=== PATIENT | male | born 1995 | race Two or more races ===

== ENCOUNTER 2018-06-11 06:04 | Observation (INO) | payer OTHER ==
[2018-06-11] VITALS (15 sets, daily range): BP systolic 125–154; BP diastolic 53–89
[~2018-06-11] VITALS: Ht 179.1 cm; Wt 88.5 kg
[~2018-06-11 06:04] MED LIST: CLINDESSE5.8 GM VG; FISH OIL 1,0001 EAC5 ORAL; IBUPROFEN600 MG ORAL; NIACIN500 M3 PO
[2018-06-11] MEDS ORDERED: Zemuron 50mg/5ml Inj IV ONE (06:39)
[2018-06-11] MEDS ORDERED: LR 1000ml 1,000 ML IVLG SCH (06:53)
--- NOTE | 2018-06-11 06:55 | Anethesia Preoperative Eval ---
Anesthesia Pre-op PMH/ROS General Date of Evaluation: Jun 11, 2018 Time of Evaluation: 07:11 Anesthesiologist: Elpidio ASA Score: ASA 2 Mallampati Score Class I : Soft palate, uvula, fauces, pillars visible Class II: Soft palate, uvula, fauces visible Class III: Soft palate, base of uvula visible Class IV: Only hard plate visible Mallampati Classification: Class II Surgeon: Danny Diagnosis: Back Pain Surgical Procedure: Left L 4-5 Microdiscetomy, Decompression Anesthesia History: none Family History: no anesthesia problems Allergies: Coded Allergies: No Known Allergies (Unverified , 06/10/18) Medications: see eMAR Patient NPO?: Yes NPO Date: Jun 10, 2018 NPO Time: 2100 Past Medical History Cardiovascular: Reports: HTN, other - HL Other: other - Overweight Anesthesia Pre-op Phys. Exam Physician Exam Last Vital Signs Date Time Temp Pulse Resp B/P (MAP) Pulse Ox O2 Delivery O2 Flow Rate FiO2 06/11/18 06:45 97.3 73 18 154/74 (100) 99 Constitutional: NAD Neurologic: CN 2-12 intact Cardiovascular: RRR Respiratory: CTA Gastrointestinal: S/NT/ND Airway Exam Mallampati Score: Class II MO: full ROM: full Teeth: intact Anesthesia Pre-op A/P Risk Assessment & Plan Assessment: ASA 2 Plan: GA, SED, GlideScope Go Status Change Before Surgery: No Pre-Antibiotics Dru Gram s Ancef IV Given Within 1 Hr of Incision: Yes Time Given: 07:26 Shawn Magallanes MD Jun 11, 2018 06:55
[2018-06-11] MEDS ORDERED: DiphenhydrAMINE 50mg/ml Inj IVP PRN (07:00)
[2018-06-11] MEDS ORDERED: Metoclopramide 10mg/2ml Inj IVP PRN (07:00)
[2018-06-11] MEDS ORDERED: Midazolam 2mg/2ml Inj IVP PRN (07:00)
[2018-06-11] MEDS ORDERED: oxyCODONE HCL/Acetaminophen 5/325mg ORAL PRN (07:00)
[2018-06-11] MEDS ORDERED: Propofol 1,000mg/ 100ml btl IV ONE (07:00)
[2018-06-11] MEDS ORDERED: Ketorolac 30mg Inj IV PRN ×2 (07:00)
[2018-06-11] MEDS ORDERED: Lidocaine 1% MPF 10mg/ml 5ml ONE ×2 (07:00→09:06)
[2018-06-11] MEDS ORDERED: NS Irrig 1000ml ONE (07:00)
[2018-06-11] MEDS ORDERED: Lidocaine 1% Plain 30 ml INJ ONE (07:00)
[2018-06-11] MEDS ORDERED: fentaNYL 100 mcg/2 mL IV PRN (07:00)
[2018-06-11] MEDS ORDERED: LORazepam Inj 2mg/ml 1ml IV PRN (07:00)
[2018-06-11] MEDS ORDERED: Norco 5mg/325mg tab ORAL PRN ×2 (07:00→10:30)
[2018-06-11] MEDS ORDERED: Sodium Chloride 10ml vial INJ ONE (07:00)
[2018-06-11] MEDS ORDERED: Dexamethasone 4mg/ml vial ONE (07:00)
[2018-06-11] MEDS ORDERED: Acetaminophen (Non formulary) 100 ML IV ONE (07:00)
[2018-06-11] MEDS ORDERED: Sterile Water Irrig 1000ml IRRIG ONE (07:00)
[2018-06-11] MEDS ORDERED: Hydromorphone 0.5mg/0.5ml inj IVP PRN (07:00)
[2018-06-11] MEDS ORDERED: Meperidine 50mg/ml Inj(FOR RIGORS ONLY) IVP PRN (07:00)
[2018-06-11] MEDS ORDERED: HYDROcodone/Acetamin 7.5/325 tab ORAL PRN (07:00)
[2018-06-11] MEDS ORDERED: Atropine Sulfate 0.4mg/ml inj IVP PRN (07:00)
[2018-06-11] MEDS ORDERED: LR 1000ml ONE (07:00)
[2018-06-11] MEDS ORDERED: CLINDESSE5.8 GM VG (07:05)
--- NOTE | 2018-06-11 07:08 | Pre-Procedure Note/Attestation ---
Pre-Procedure Note/Attestation Complete Prior to Procedure Planned Procedure: left Procedure Narrative: Left L4-5, L5-S1 Decompression / Discectomy Indications for Procedure Pre-Operative Diagnosis: L4-5-S1 Disc hernia Attestation I attest that I discussed the nature of the procedure; its benefits; risks and complications; and alternatives (and the risks and benefits of such alternatives ), prior to the procedure, with the patient (or the patient's legal freight representative). I attest that, if there was a reasonable possibility of needing a blood transfusion, the patient (or the patient's legal freight representative) was given the [facility] standardized written summary, pursuant to the Marques Petros Blood Safety Act ([place] Health and Safety Code # 1645, as amended). I attest that I re-evaluated the patient just prior to the surgery and that there has been no change in the patient's H&P, except as documented below: THIAGO FARRIS Jun 11, 2018 07:08
[2018-06-11] MEDS ORDERED: Neosporin Oint Ud Pkt TOPIC ONE (07:13)
[2018-06-11] MEDS ORDERED: Thrombin 5000 units TOPIC ONE (07:13)
[2018-06-11] MEDS ORDERED: Bupivacaine 0.5% Inj 30 ml vial INJ ONE ×2 (07:13→09:42)
[2018-06-11] MEDS ORDERED: Bupivacaine w/Epi 0.5% 30ml Vial INJ ONE (07:13)
[2018-06-11] MEDS ORDERED: Bacitracin 50000 Units Vial ONE (07:14)
[2018-06-11] MEDS ORDERED: fentaNYL 100 mcg/2 mL IV ONE ×2 (08:02→09:42)
--- NOTE | 2018-06-11 08:10 | Immediate Post-Op Evaluation ---
Immediate Post-Op Evalulation Immediate Post-Op Evalulation Procedure: Left L 4-5 Microdiscetomy, Decompression Date of Evaluation: Jun 11, 2018 Time of Evaluation: 10:45 IV Fluids: 800 LR Blood Products: 0 Estimated Blood Loss: 50 Urinary Output: 300 Blood Pressure Systolic: 149 Blood Pressure Diastolic: 83 Pulse Rate: 82 Respiratory Rate: 16 O2 Sat by Pulse Oximetry: 100 Temperature (Fahrenheit): 97.5 Pain Score (1-10): 2 Nausea: No Vomiting: No Complications 0 Patient Status: awake, reacts, patent, none Hydration Status: adequate Dru Grams Ancef IV Given Within 1 Hr of Incision: Yes Time Given: 07:26 Shawn Magallanes MD Jun 11, 2018 08:10
--- NOTE | 2018-06-11 08:11 | 48 Hour Post Anesthesia Eval ---
Post Anesthesia Evaluation Procedure: Left L 4-5 Microdiscetomy, Decompression Date of Evaluation: Jun 11, 2018 Time of Evaluation: 12:53 Blood Pressure Systolic: 134 0: 81 Pulse Rate: 78 Respiratory Rate: 18 Temperature (Fahrenheit): 98.2 O2 Sat by Pulse Oximetry: 100 Airway: patent Nausea: No Vomiting: No Pain Intensity: 2 Hydration Status: adequate Cardiopulmonary Status: Stable Mental Status/LOC: patient returned to baseline Follow-up Care/Observations: 0 Post-Anesthesia Complications: 0 Follow-up care needed: ready to discharge Shawn Magallanes MD Jun 11, 2018 08:11
--- NOTE | 2018-06-11 10:23 | Brief Operative Note ---
Immediate Post Operative Note Operative Note Chief Complaint: Low back pain and Left leg pain Pre-op Diagnosis: L4-5-S1 Disc hernia Procedure: Left L4-5, L5-S1 decompression/ discectomy Post-op Diagnosis: same Post-op Diagnosis: same as pre-op Findings: consistent w/pre-op dx studies Surgeon: Danny Senior Research Analyst: Grace Anesthesiologist: Elpidio Anesthesia: general Specimen: yes - Disc Complications: none Condition: stable Fluids: See Anesthesia Recs Estimated Blood Loss: minimal Drains: none Implant(s) used?: No THIAGO FARRIS Jun 11, 2018 10:23
--- NOTE | 2018-06-11 10:28 | Discharge Summary ---
Discharge Summary Hospital Course Date of Admission Jun 11, 2018 at 06:04 Date of Discharge 06/11/18 Admitting Diagnosis L4-5, L5-S1 disc hernia Reason for Hospitalization: S/P lumbar surgery HPI Carmela Rivera is a 22 year old male who was admitted on Jun 11, 2018 at 06:04 for L4-5,L5-S1 Disc Herniation Consultations Neurosurgery: required surgery performed on 06/11 without complication L4-S1 decompression Procedures Left L4-5, L5-S1 decompression / Discectomy Hospital Course Uncomplicated Discharge Discharge Disposition Patient was discharged to Home Discharge Diagnoses: (1) S/P lumbar discectomy THIAGO FARRIS Jun 11, 2018 10:28
[2018-06-11] MEDS ORDERED: Tylenol #3 tab (300mg/30mg) ORAL PRN (10:30)
[2018-06-11] MEDS ORDERED: HYDROmorphone 1mg/ml Carpuject SUBQ PRN (10:30)
--- NOTE | 2018-06-11 11:28 | Diagnostic Imaging Report ---
INDICATION: Pain, intraoperative TECHNIQUE: Intraoperative imaging Fluoroscopy time: 11.4 seconds Total dose: 0.04165 mGym2 Total number of images: 4 COMPARISON: None FINDINGS: Intraoperative images demonstrate surgical tool posterior to L5, subsequent placement of an epidural catheter IMPRESSION: Intraoperative imaging, as described
[2018-06-11] MEDS ORDERED: Chloraseptic Spray 20mL Bottle ORAL PRN (12:45)
[2018-06-11] MEDS ORDERED: LORazepam 0.5mg tab ORAL PRN (12:46)
[2018-06-11] MEDS ORDERED: Milk of Magnesia 30ml Ud ORAL PRN (12:46)
[2018-06-11] MEDS ORDERED: Cyclobenzaprine 10mg Tab ORAL PRN (12:48)
[2018-06-11] MEDS ORDERED: HYDROcodone/Acetamin 10/325 tab ORAL PRN (12:54)
[2018-06-11] MEDS ORDERED: Hydromorphone 0.5mg/0.5ml inj SUBQ PRN (12:55)
[2018-06-11] MEDS ORDERED: oxyCODONE 5mg IR tab ORAL PRN (12:55)
[2018-06-11] MEDS ORDERED: D5 1/2NS 1,000 ML IV SCH (13:30)
[2018-06-11] MEDS ORDERED: Docusate 100mg/10ml Liq NG SCH (18:00)
--- NOTE | 2018-06-11 20:15 | Consultation ---
DATE OF CONSULTATION: 06/11/2018 CONSULTING PHYSICIAN: aDve Eduardo M.D. REFERRING PHYSICIAN: Ivy Delgado M.D. REASON FOR CONSULT: Acute pain consult. HISTORY OF PRESENT ILLNESS: Dear Dr. Delgado, Thank you kindly for consulting me to evaluate and render an opinion as to how to proceed in the management of the patient's acute postoperative lumbar spine pain after multiple level lumbar spine surgery today. On your request, I saw the patient for postoperative pain management consultation. I performed detailed history and physical examination. I reviewed the medical record in detail including multiple records from today's date of surgery at [facility], 06/11/2018. I reviewed multiple preop records from [facility] along with diagnostic testing including 12-lead EKG, chest x-ray, and laboratory studies. I discussed the case with the hospital pharmacist, along with the recovery room nurse to devise the following analgesic plan. I spent over 75 minutes in consultation with an additional 30 minutes in medical record review. PAST MEDICAL HISTORY: 1. Acute postoperative lumbar spine pain status post multiple-level lumbar spine surgery by Dr. Ivy Delgado, May 2018. 2. Intermittent tobacco usage. PAST SURGICAL HISTORY: Denies. MEDICATIONS: At home, NSAID. ALLERGIES: No known drug allergies. SOCIAL HISTORY: The patient is accompanied at the bedside by his parents. He drinks alcohol socially. FAMILY HISTORY: Noncontributory. REVIEW OF SYSTEMS: Per attending physician. PHYSICAL EXAMINATION: GENERAL: Age 22, height 5 feet 11 inches, weight 200 pounds. VITAL SIGNS: In the medical record. HEENT: Normocephalic and atraumatic. CHEST: Clear to auscultation. HEART: Regular rate and rhythm. ABDOMEN: Soft. MUSCULOSKELETAL: Lumbar spine painful by incision area with minimal paraspinal muscle spasms appreciated. NEUROLOGIC: Straight leg raising and detailed neurologic exam per Dr. Delgado. DIAGNOSTIC TESTING: Shows preoperative chest x-ray, normal chest exam. Urine toxicology screen negative. A 12-lead EKG, normal sinus rhythm, ventricular rate 54. No evidence for acute cardiac ischemia. Laboratory studies from 05/19/2018 shows sodium 141, potassium 3.9, chloride 105, bicarb 28, glucose 89, BUN 10, and creatinine 0.9. AST 17, ALT 27, and alkaline phosphatase 64. Total protein 8.0, albumin 4.6. Total bilirubin 0.5. INR 1.1. PTT 29. White count 10, hematocrit 48, and platelets 129,000. HIV negative. Hepatitis C negative. Urinalysis is normal. IMPRESSION: 1. Acute postoperative lumbar spine pain status post multiple-level lumbar spine surgery by Dr. Ivy Delgado, May 2018. 2. Intermittent tobacco usage. TREATMENT RECOMMENDATIONS: I spoke with the hospital pharmacist and devised the following analgesic plan. I have set up a tiered regimen of analgesics starting with [place] 10/325 mg one tablet orally every three hours p.r.n. for mild pain. I have added oxycodone instant release 5 mg orally every three hours p.r.n. for moderate pain. I have ordered a breakthrough dose of Dilaudid 0.5 mg subcutaneously every three hours p.r.n. for severe breakthrough pain. I have chosen the subcutaneous route to reduce the risk for postoperative nausea, as nausea might delay in his discharge planning. In case of any nausea symptoms, I have ordered two agents starting with Zofran 4 mg intravenously every 4 hours p.r.n. as a first-line antiemetic. I have also ordered Phenergan 12.5 mg intramuscularly every 8 hours p.r.n. as a second-line agent. I have ordered Benadryl 25 mg orally every 6 hours in case of any itching complaints. I will place the patient on Pepcid 20 mg b.i.d. for GI ulcer prophylaxis and I have ordered a p.r.n. dose of Mylanta 30 mL q.6 hours in case of any GERD symptom exacerbation. I have ordered incentive spirometer and encouraged good pulmonary toilet. I will defer DVT prophylaxis to the surgeon. I have placed the patient on Colace 100 mg b.i.d. to help with bowel regularity. I have ordered p.r.n. dose of milk of magnesia as a rescue laxative. In case of any muscle spasm symptoms which might develop, I have ordered Flexeril 10 mg orally every 8 hours p.r.n. The patient does smoke cigarettes intermittently. I did counselor supervisor the patient to stop smoking. If he develops nicotine withdrawal agitation, which may exacerbate the pain complaints I have ordered a 7 mg nicotine patch to be placed daily as needed. In case if the patient has any headaches, I have ordered Fioricet one tablet orally every 8 hours p.r.n. for headache symptoms. Dave Eduardo M.D. DR: CARMELITA JOB#: [id number] CC:
[2018-06-11] MEDS ORDERED: Zolpidem 5mg tab ORAL PRN (21:00)
== END 2018-06-11 16:00 | disposition home or self-care (01) ==
LOC: SDSOVERFLO 06:04 → INTOOBSV 06:04 → 3E 11:48
DX: M51.16 Intervertebral disc disorders with radiculopathy, lumbar region (principal); M51.17 Intervertebral disc disorders with radiculopathy, lumbosacral region; M48.061 Spinal stenosis, lumbar region without neurogenic claudication; I10 Essential (primary) hypertension; E78.5 Hyperlipidemia, unspecified; E66.3 Overweight
CPT/HCPCS: 36415; 63030; 63035; 72020; 76001; 86850; 86900; 86901; 87081; 96360; 97161; G0378; J0690; J1100; J1170; J1200; J2001; J2175; J2250; J2405; J2704; J3010; J3490; 94003; 94150